=== PATIENT | male | born 1935 | race Caucasian/White ===

== ENCOUNTER 2019-03-28 01:03 | Observation (INO) | payer MEDICARE ==
[~2019-03-28] VITALS: Ht 170.2 cm; Wt 97.0 kg
[2019-03-28] MEDS ORDERED: Flomax0.4 MG PO (01:36)
[2019-03-28] MEDS ORDERED: METF500 PO (01:36)
[2019-03-28] MEDS ORDERED: FINA5 PO (01:37)
[2019-03-28] MEDS ORDERED: Aspirin EC81 MG PO (01:37)
[2019-03-28] MEDS ORDERED: MAGCHL64ER PO (01:37)
[2019-03-28] MEDS ORDERED: Zocor20 MG PO (01:37)
[2019-03-28 03:07] LABS: BASOPHILS ABSOLUTE AUTO 0.04 K/mm3 (0.00-0.23); BASOPHILS PERCENT AUTO 0 % (0-2); EOSINOPHILS ABSOLUTE AUTO 0.16 K/mm3 (0.00-0.68); EOSINOPHILS PERCENT AUTO 1 % (0-6); Hematocrit 45.5 % (37.0-53.0); Hemoglobin 15.4 g/dL (13.5-17.5); IMMATURE GRAN ABSOLUTE AUTO 0.05 K/mm3 (0.00-0.10); IMMATURE GRAN PERCENT AUTO 0 % (0-1); LYMPHOCYTES ABSOLUTE AUTO 1.13 K/mm3 (0.84-5.20); LYMPHOCYTES PERCENT AUTO 9 % (21-46); MONOCYTES PERCENT AUTO 7 % (4-13); Mean Corpuscular HGB 30.4 pg (26.0-34.0); Mean Corpuscular HGB Conc 33.8 g/dL (31.5-36.5); Mean Corpuscular Volume 90 fL (80-100); Mean Platelet Volume 8.7 fL (9.1-12.4); NEUTROPHILS ABSOLUTE AUTO 10.11 K/mm3 (1.96-9.15); NEUTROPHILS PERCENT AUTO 82 % (41-73); Platelet Count 155 K/mm3 (150-400); RDW Coefficient Variation 13.9 % (11.7-14.2); RDW Standard Deviation 45.2 fL (35.1-46.3); Red Blood Cell Count 5.07 M/mm3 (4.30-5.90); White Blood Cell Count 12.39 K/mm3 (4.00-11.30)
[2019-03-28 03:24] LABS: Source, Urine Catheter
[2019-03-28 03:25] LABS: Alanine Aminotransfer (ALT/SGP 28 U/L (12-78); Albumin, Blood 3.7 g/dL (3.4-5.0); Albumin/Globulin Ratio 1.1 (0.8-1.8); Alk Phos 76 U/L (50-136); Anion Gap 8 mmol/L (6-16); Aspartate Aminotrans (AST/SGOT 28 U/L (12-37); Bilirubin, Total 0.6 mg/dL (0.1-1.0); Blood Urea Nitrogen 31 mg/dL (8-24); Bun/Creatinine Ratio 27.2 (12.0-20.0); CO2, Blood 25 mmol/L (21-32); Calcium, Blood 8.9 mg/dL (8.5-10.1); Chloride, Blood 107 mmol/L (98-108); Creatinine, Blood 1.14 mg/dL (0.60-1.20); Globulin, Blood 3.4 g/dL (2.2-4.0); Glomerular Filtration Rate >60 (60-); Glucose, Blood 129 mg/dL (70-99); Potassium, Blood 4.6 mmol/L (3.5-5.5); Sodium, Blood 140 mmol/L (136-145); Total Protein, Blood 7.1 g/dL (6.4-8.2)
[2019-03-28 03:32] LABS: Appearance, Urine Clear (Clear); Bilirubin, Urine 1+ (Neg); Blood, Urine Neg (Neg); Color, Urine Amber (P-Yellow); Glucose Qualitative, Urine Neg (Neg); Ketones, Urine Neg (Neg); Leukocyte Esterase, Urine 1+ (Neg); Nitrite, Urine Neg (Neg); Protein, Urine 1+ (Neg); Urobilinogen, Urine 1+ (Normal)
[2019-03-28 03:37] LABS: Squamous Epithelial Cells Rare /hpf (Few)
[2019-03-28 03:38] LABS: Bacteria Many /hpf; Mucus Mod (0-Heavy)
--- NOTE | 2019-03-28 06:36 | NUR ---
0625 PT ADMITTED TO ROOM 344 PER CART FROM ER, ALL PERSONAL BELONGINGS SENT HOME WITH SON IN LAW LONG. DEAN DRAINING CLEAR YELLOW FLUID, ORIENTED TO ROOM. ALERT AND ORIENTED X 4.
[2019-03-28 13:01] LABS: Hematocrit 46.2 % (37.0-53.0); Hemoglobin 15.2 g/dL (13.5-17.5); Mean Corpuscular HGB 30.2 pg (26.0-34.0); Mean Corpuscular HGB Conc 32.9 g/dL (31.5-36.5); Mean Corpuscular Volume 92 fL (80-100); Mean Platelet Volume 8.9 fL (9.1-12.4); Platelet Count 162 K/mm3 (150-400); RDW Coefficient Variation 13.7 % (11.7-14.2); RDW Standard Deviation 46.4 fL (35.1-46.3); Red Blood Cell Count 5.03 M/mm3 (4.30-5.90); White Blood Cell Count 8.52 K/mm3 (4.00-11.30)
[2019-03-28 13:03] LABS: Alanine Aminotransfer (ALT/SGP 28 U/L (12-78); Albumin, Blood 3.6 g/dL (3.4-5.0); Albumin/Globulin Ratio 1.1 (0.8-1.8); Alk Phos 78 U/L (50-136); Anion Gap 6 mmol/L (6-16); Aspartate Aminotrans (AST/SGOT 20 U/L (12-37); Bilirubin, Total 0.6 mg/dL (0.1-1.0); Blood Urea Nitrogen 28 mg/dL (8-24); Bun/Creatinine Ratio 26.7 (12.0-20.0); CO2, Blood 26 mmol/L (21-32); Calcium, Blood 8.6 mg/dL (8.5-10.1); Chloride, Blood 109 mmol/L (98-108); Creatinine, Blood 1.05 mg/dL (0.60-1.20); Globulin, Blood 3.3 g/dL (2.2-4.0); Glomerular Filtration Rate >60 (60-); Glucose, Blood 119 mg/dL (70-99); Potassium, Blood 4.4 mmol/L (3.5-5.5); Sodium, Blood 141 mmol/L (136-145); Total Protein, Blood 6.9 g/dL (6.4-8.2)
--- NOTE | 2019-03-28 18:54 | NUR ---
SHIFT SUMMARY- PT HAS HAD NO ACUTE CHANGES T/O THE SHIFT. PT WAS SEEN BY DR HYLTON BUT HAS HAD 2 MED BM'S TODAY WITH LARGE AMOUNTS OF FLATUS. PT ALERT AND ORIENTED NOT FORGETFUL INITIALLY THOUGHT. PT HAS A DEAN THAT IS PATENT AND DRAINING TO GRAVITY BLOOD TINGED PINK URINE. THE FAMILY WAS CONCERNED ABOUT THIS. WILL DISCUSS WITH IN THE MORNING. PT IN BED WITH THE CALL LIGHT IN REACH NO CURRENT C/O PAIN, BEDSIDE REPORT COMPLETED WITH NIGHT JANI SANTIAGO.
--- NOTE | 2019-03-29 04:51 | NUR ---
SHIFT SUMMARY PT HAD NO ISSUES NOTED THIS SHIFT. PT IS PRODUCING PINKISH URINE. PT STATES IT HAS IMPROVED. PT SLEPT WELL T/O SHIFT. PT WOKE UP EARLY AND WALKED THE FLOOR WITH WALKER THIS AM. PT CURRENTLY AWAKE WATCHING TV. PT IN NO DISTRESS AND CALL LIGHT IN REACH.
[2019-03-29 05:09] LABS: BASOPHILS ABSOLUTE AUTO 0.03 K/mm3 (0.00-0.23); BASOPHILS PERCENT AUTO 0 % (0-2); EOSINOPHILS ABSOLUTE AUTO 0.16 K/mm3 (0.00-0.68); EOSINOPHILS PERCENT AUTO 2 % (0-6); Hematocrit 43.4 % (37.0-53.0); Hemoglobin 14.4 g/dL (13.5-17.5); IMMATURE GRAN ABSOLUTE AUTO 0.03 K/mm3 (0.00-0.10); IMMATURE GRAN PERCENT AUTO 0 % (0-1); LYMPHOCYTES ABSOLUTE AUTO 1.43 K/mm3 (0.84-5.20); LYMPHOCYTES PERCENT AUTO 20 % (21-46); MONOCYTES ABSOLUTE AUTO 0.69 K/mm3 (0.16-1.47); MONOCYTES PERCENT AUTO 9 % (4-13); Mean Corpuscular HGB 29.4 pg (26.0-34.0); Mean Corpuscular HGB Conc 33.2 g/dL (31.5-36.5); Mean Platelet Volume 8.9 fL (9.1-12.4); NEUTROPHILS ABSOLUTE AUTO 5.01 K/mm3 (1.96-9.15); NEUTROPHILS PERCENT AUTO 68 % (41-73); Platelet Count 153 K/mm3 (150-400); RDW Coefficient Variation 13.8 % (11.7-14.2); RDW Standard Deviation 44.4 fL (35.1-46.3); Red Blood Cell Count 4.89 M/mm3 (4.30-5.90); White Blood Cell Count 7.35 K/mm3 (4.00-11.30)
[2019-03-29 05:11] LABS: Mean Corpuscular Volume 89 fL (80-100)
[2019-03-29 05:32] LABS: Albumin, Blood 3.4 g/dL (3.4-5.0); Anion Gap 6 mmol/L (6-16); Blood Urea Nitrogen 18 mg/dL (8-24); CO2, Blood 24 mmol/L (21-32); Calcium, Blood 8.4 mg/dL (8.5-10.1); Chloride, Blood 109 mmol/L (98-108); Glomerular Filtration Rate >60 (60-); Glucose, Blood 92 mg/dL (70-99); Phosphorus, Blood 2.8 mg/dL (2.5-4.9); Potassium, Blood 4.2 mmol/L (3.5-5.5); Sodium, Blood 139 mmol/L (136-145)
--- NOTE | 2019-03-29 07:00 | NUR ---
ASSUMED CARE OF PT- BEDSIDE REPORT RECIEVED FROM NIGHT JANI SANTIAGO. PT ALERT AND ORIENTED AND A LITTLE FORGETFUL. FAMILY CAME IN TO SEE THE PT SHORTLY AFTER SHIFT CHANGE. PT HAD A LARGE LOOSE BM AFTER SHIFT CHANGE, BT PRESENTBUT HYPOCATIVEUPPER QUADS HOLLOW SOUNDING ON PERCUSSION. PT C/O PASSING GAS LAST NIGHT BUT NO STOOL. THEN BM THIS MORNING HAPPENED. PT ALERT AND ORIENTED AND INDEPENDENT IN THE ROOM. PER REPORT FROM NIGHT JANI SANTIAGO PT WALKED IN THE HALLS LAST NIGHT IN AN ATTEMPT TO GET THINGS MOVING WITH NO RESULT. PT CURRENTLY IN BED WITH THE CALL LIGHT IN REACH NO S&S OF DISTRESS.
[2019-03-29] MEDS ORDERED: MIRALAX17 GM PO (14:39)
--- NOTE | 2019-03-29 16:36 | NUR ---
DISCHARGE NOTE- PT WAS GIVEN VERBAL AND WRITTEN DISCHARGE INSTRUCTIONS AND ACKNOWLEDGED UNDERSTANDING OF THEM. IV DC'D PRIOR TO DISCHARGE. PT HAD AN ADDITIONAL BM PRIOR TO DISCHARGE HOME. PT WAS ESCORTED VIA W/C BY THE RN TO THE [facility]. NO FURTHER QUESTIONS AT THE TIME OF DISCHARGE.
== END 2019-03-29 15:55 | disposition home or self-care (01) ==
LOC: ER 01:03 → MEDS 01:04
PROVIDERS: Family Medicine; Physician Assistant; ADMIT Internal Medicine
DX: K56.600 Partial intestinal obstruction, unspecified as to cause (principal); E86.0 Dehydration; D72.829 Elevated white blood cell count, unspecified; E11.9 Type 2 diabetes mellitus without complications; E78.5 Hyperlipidemia, unspecified; N40.0 Benign prostatic hyperplasia without lower urinary tract symptoms; Z98.890 Other specified postprocedural states; Z90.49 Acquired absence of other specified parts of digestive tract; Z79.899 Other long term (current) drug therapy; Z79.82 Long term (current) use of aspirin
CPT/HCPCS: 36415; 51702; 51798; 74176; 80053; 80069; 81001; 82947; 83690; 85025; 85027; 87086; 96372; 99285-25; G0378; J1650; J7030

== ENCOUNTER → 2021-04-08 | Outpatient (CLI) | payer MEDICARE ==
[~2021-04-08] MED LIST: Aspirin EC81 MG PO; FINA5 PO; Flomax0.4 MG PO; MAGCHL64ER PO; METF500 PO; MIRALAX17 GM PO; Zocor20 MG PO
== END | disposition home or self-care (01) ==
LOC: LAB SHORT 07:53 → LAB 07:53
DX: B35.1 Tinea unguium (principal); L60.2 Onychogryphosis
CPT/HCPCS: 88304; 88312

== ENCOUNTER → 2023-02-24 | Outpatient (CLI) | payer MEDICARE ==
[2023-02-24 13:04] LABS: BASOPHILS ABSOLUTE AUTO 0.05 K/mm3 (0.00-0.23); BASOPHILS PERCENT AUTO 1 % (0-2); EOSINOPHILS ABSOLUTE AUTO 0.15 K/mm3 (0.00-0.68); EOSINOPHILS PERCENT AUTO 2 % (0-6); Hematocrit 41.9 % (37.0-53.0); Hemoglobin 14.2 g/dL (13.5-17.5); IMMATURE GRAN ABSOLUTE AUTO 0.05 K/mm3 (0.00-0.10); IMMATURE GRAN PERCENT AUTO 1 % (0-1); LYMPHOCYTES ABSOLUTE AUTO 1.37 K/mm3 (0.84-5.20); LYMPHOCYTES PERCENT AUTO 22 % (21-46); MONOCYTES ABSOLUTE AUTO 0.68 K/mm3 (0.16-1.47); MONOCYTES PERCENT AUTO 11 % (4-13); Mean Corpuscular HGB 29.8 pg (26.0-34.0); Mean Corpuscular HGB Conc 33.9 g/dL (31.5-36.5); Mean Corpuscular Volume 88 fL (80-100); Mean Platelet Volume 9.2 fL (9.1-12.4); NEUTROPHILS ABSOLUTE AUTO 3.94 K/mm3 (1.96-9.15); NEUTROPHILS PERCENT AUTO 63 % (41-73); Platelet Count 169 K/mm3 (150-400); RDW Coefficient Variation 13.6 % (11.7-14.2); RDW Standard Deviation 43.6 fL (35.1-46.3); Red Blood Cell Count 4.77 M/mm3 (4.30-5.90); White Blood Cell Count 6.24 K/mm3 (4.00-11.30)
[2023-02-24 13:21] LABS: Albumin, Blood 3.5 g/dL (3.4-5.0); Bilirubin, Total 0.4 mg/dL (0.1-1.0); Bun/Creatinine Ratio 26.6 (12.0-20.0); Calcium, Blood 9.2 mg/dL (8.5-10.1); Creatinine, Blood 1.09 mg/dL (0.60-1.20); Globulin, Blood 3.4 g/dL (2.2-4.0); Potassium, Blood 4.4 mmol/L (3.5-5.5); Total Protein, Blood 6.9 g/dL (6.4-8.2)
== END ==
LOC: LAB SHORT 10:55 → LAB 10:55
PROVIDERS: Nurse Practitioner Family
DX: I10 Essential (primary) hypertension (principal); E11.9 Type 2 diabetes mellitus without complications
CPT/HCPCS: 80053; 83036; 85025

== ENCOUNTER → 2024-02-21 | Outpatient (CLI) | payer MEDICARE, OTHER ==
[~2024-02-21] MED LIST changes: +DOXE10 PO; +DULO30 PO; +Prinivil10 MG PO
[2024-02-23 01:24] LABS: COTININE, URN, SCREEN Negative ng/mL (Cutoff 100)
== END | disposition home or self-care (01) ==
LOC: LAB SHORT 14:24 → LAB 14:24
PROVIDERS: Orthopaedic Surgery
DX: Z01.812 Encounter for preprocedural laboratory examination (principal); Z87.891 Personal history of nicotine dependence

== ENCOUNTER 2024-03-07 05:47 | Day surgery (SDC) | payer MEDICARE, OTHER ==
[~2024-03-07] VITALS: Ht 167.6 cm; Wt 96.8 kg
[2024-03-07] VITALS (11 sets, daily range): BP systolic 113–136; BP diastolic 65–86
[2024-03-07] MEDS ORDERED: Acetaminophen 500 MG Tab PO SCH ×2 (06:30→08:00)
[2024-03-07] MEDS ORDERED: Ropivacaine 0.5% HCl/Pf 123.125 MG,EPINEPHrine HCL 0.25 MG,Ketorolac Tromethamine 15 MG... INFIL SCH (06:30)
[2024-03-07] MEDS ORDERED: Lactated Ringer's 1,000 ML IV SCH ×2 (06:30→07:55)
[2024-03-07] MEDS ORDERED: Chlorhexidine Mouth Care 15 ML UDC MT SCH (06:30)
[2024-03-07] MEDS ORDERED: OxyCODONE HCL 10 MG TABCR PO SCH (06:30)
[2024-03-07] MEDS ORDERED: Tranexamic Acid 100 ML IV SCH (06:30)
[2024-03-07] MEDS ORDERED: CeFAZolin Sodium 2,000 MG in NS 100 ML IV SCH ×2 (06:30→16:00)
[2024-03-07] MEDS ORDERED: propofoL 60 ML IV ONE (07:47)
[2024-03-07] MEDS ORDERED: Dexamethasone Sod Phos 10 MG/ML 1ML VIAL ONE (07:51)
[2024-03-07] MEDS ORDERED: Metoclopramide HCl 5MG / ML 2ML Vial IV PRN (07:55)
[2024-03-07] MEDS ORDERED: DiphenhydrAMINE HCL 25 MG Cap PO PRN (07:55)
[2024-03-07] MEDS ORDERED: Ondansetron HCl 2 MG / ML 2ML Vial IV PRN ×2 (07:55→08:30)
[2024-03-07] MEDS ORDERED: Bisacodyl 10 MG Supp PR PRN (07:55)
[2024-03-07] MEDS ORDERED: Magnesium Hydroxide Conc 10 ML UDC PO PRN (07:55)
[2024-03-07] MEDS ORDERED: Promethazine HCl 25 MG Tab PO PRN (08:00)
[2024-03-07] MEDS ORDERED: OxyCODONE HCL 5 MG TAB PO PRN ×2 (08:00)
[2024-03-07] MEDS ORDERED: HYDROmorphone HCl/Pf 1MG SYR IV PRN ×2 (08:00→08:30)
[2024-03-07] MEDS ORDERED: MetFORMIN HCl 500 mg PO SCH (08:00)
[2024-03-07] MEDS ORDERED: FentaNYL Citrate 50 MCG/ML 2 ML Injection IV PRN ×3 (08:30→08:35)
[2024-03-07] MEDS ORDERED: ePHEDrine Sulfate 50 MG/ML 1ML Injection ONE (08:42)
[2024-03-07] MEDS ORDERED: Ondansetron HCl 2 MG / ML 2ML Vial ONE (08:49)
[2024-03-07] MEDS ORDERED: Docusate Sodium 100 MG Cap PO SCH (09:00)
[2024-03-07] MEDS ORDERED: Finasteride 5 MG Tab PO SCH ×2 (09:00)
[2024-03-07] MEDS ORDERED: Lisinopril 10 MG Tab PO SCH (09:00)
[2024-03-07] MEDS ORDERED: propofoL 20 ML IV ONE (09:13)
[2024-03-07] MEDS ORDERED: Insulin Regular 100 UNIT/ML 10ML Vial SC SCH (11:30)
[2024-03-07] MEDS ORDERED: Ketorolac Tromethamine 15mg Vial IV SCH (12:00)
--- NOTE | 2024-03-07 15:48 | NUR ---
DISCHARGE SUMMARY PT A&OX4, VSS/RA, ANNIE PO, VOIDING, PASSED PHYSICAL THERAPY EVAL, AMB FWW/GB AND UP TO CHAIR, PAIN MANAGED, IV DC'D. DC INS PROVIDED TO PT AND DAUGHTER; REP UNDERSTANDING THOSE INSTRUCTIONS. LEFT FLOOR VIA WC WITH STOPPING BUILDER TO GO HOME WITH ALL PERSONAL POSSESSIONS INCLUDING DC PACKET; I MAILED AQUACEL DRESSINGS TO PT SINCE I FORGOT TO PROVIDE THEM AT DC. PT AND FAMILY WERE INSISTENT TO LEAVE AND PUSHED THROUGH EVERYTHING, VERY IMPATIENT AND BARELY STOPPED TALKING FOR A MINUTE TO LISTEN TO DIRECTION OR EDUCATION.
[2024-03-07] MEDS ORDERED: Tamsulosin HCl 0.4 MG Cap PO SCH (21:00)
[2024-03-08] MEDS ORDERED: Aspirin 81 MG Chew PO SCH (09:00)
[2024-03-08] MEDS ORDERED: Atorvastatin 10 MG Tab PO SCH (09:00)
== END 2024-03-07 15:04 | disposition home or self-care (01) ==
LOC: ORSCMMR 05:47 → ORD 08:00 → ORSCMMR 08:00 → ORD 10:30 → SURS 10:55 → ORSCMMR 15:04
PROVIDERS: Orthopaedic Surgery
PROC: 0SRD0JA Replacement of Left Knee Joint with Synthetic Substitute, Uncemented, Open Approach (ICD-10-PCS; principal; 2024-03-07 08:00)
DX: M17.12 Unilateral primary osteoarthritis, left knee (principal); I12.9 Hypertensive chronic kidney disease with stage 1 through stage 4 chronic kidney disease, or unspecified chronic kidney disease; N18.9 Chronic kidney disease, unspecified; R73.03 Prediabetes; Z79.84 Long term (current) use of oral hypoglycemic drugs; Z79.899 Other long term (current) drug therapy; Z68.34 Body mass index [BMI] 34.0-34.9, adult
CPT/HCPCS: 73560-LT; 82947; 97110; 97116; 97162; A9270; C1776; J0171; J0690; J0735; J1100; J1170; J1885; J2405; J2704; J2795; J7120

== ENCOUNTER → 2024-04-02 | Outpatient (CLI) | payer MEDICARE, OTHER ==
[2024-04-02 17:32] LABS: Adenovirus F 40/41 Not Detected (NOT DETECT); Astrovirus Not Detected (NOT DETECT); Campylobacter Sp Not Detected (NOT DETECT); Cryptosporidium Not Detected (NOT DETECT); Cyclospora Cayetanensis Not Detected (NOT DETECT); E. Coli O157 Not Detected (NOT DETECT); Entamoeba Histolytica Not Detected (NOT DETECT); Enteroaggregative E. coli-EAEC Not Detected (NOT DETECT); Enteropathogenic E. coli-EPEC Not Detected (NOT DETECT); Enterotoxigenic E. coli-ETEC Not Detected (NOT DETECT); Giardia Lamblia Not Detected (NOT DETECT); Norovirus GI/GII Not Detected (NOT DETECT); Plesiomonas Shigelloides Not Detected (NOT DETECT); Rotavirus A Not Detected (NOT DETECT); Salmonella Sp Not Detected (NOT DETECT); Sapovirus Not Detected (NOT DETECT); Shiga Toxin-prod E. coli-STEC Not Detected (NOT DETECT); Shigella/Enteroin E. coli-EIEC Not Detected (NOT DETECT); Vibrio Cholerae Not Detected (NOT DETECT); Vibrio Sp Not Detected (NOT DETECT); Yersinia Enterocolitica Not Detected (NOT DETECT)
== END ==
LOC: LAB SHORT 14:42 → LAB 14:42
PROVIDERS: Nurse Practitioner Family
DX: R19.7 Diarrhea, unspecified (principal)
CPT/HCPCS: 87507

== ENCOUNTER 2025-02-15 16:43 | Emergency (ER) | payer MEDICARE, OTHER ==
[~2025-02-15] VITALS: Ht 167.6 cm; Wt 117.9 kg
[2025-02-15 17:04] LABS: BASOPHILS ABSOLUTE AUTO 0.07 K/mm3 (0.00-0.23); BASOPHILS PERCENT AUTO 1 % (0-2); EOSINOPHILS ABSOLUTE AUTO 0.22 K/mm3 (0.00-0.68); EOSINOPHILS PERCENT AUTO 2 % (0-6); Hematocrit 45.5 % (37.0-53.0); Hemoglobin 14.9 g/dL (13.5-17.5); IMMATURE GRAN ABSOLUTE AUTO 0.09 K/mm3 (0.00-0.10); IMMATURE GRAN PERCENT AUTO 1 % (0-1); LYMPHOCYTES ABSOLUTE AUTO 3.26 K/mm3 (0.84-5.20); LYMPHOCYTES PERCENT AUTO 34 % (21-46); MONOCYTES ABSOLUTE AUTO 0.86 K/mm3 (0.16-1.47); MONOCYTES PERCENT AUTO 9 % (4-13); Mean Corpuscular HGB 28.5 pg (26.0-34.0); Mean Corpuscular HGB Conc 32.7 g/dL (31.5-36.5); Mean Corpuscular Volume 87 fL (80-100); Mean Platelet Volume 8.6 fL (9.1-12.4); NEUTROPHILS ABSOLUTE AUTO 5.05 K/mm3 (1.96-9.15); NEUTROPHILS PERCENT AUTO 53 % (41-73); Platelet Count 186 K/mm3 (150-400); RDW Coefficient Variation 14.7 % (11.7-14.2); RDW Standard Deviation 46.9 fL (35.1-46.3); Red Blood Cell Count 5.22 M/mm3 (4.30-5.90); White Blood Cell Count 9.55 K/mm3 (4.00-11.30)
[2025-02-15] MEDS ORDERED: TRAM50 PO (17:25)
[2025-02-15 17:32] LABS: International Normalized Ratio 1.09; Prothrombin Time Results 11.9 Sec (9.7-11.5)
[2025-02-15 17:39] LABS: Albumin, Blood 3.7 g/dL (3.4-5.0); Bilirubin, Total 0.6 mg/dL (0.1-1.0); Bun/Creatinine Ratio 27.7 (12.0-20.0); Calcium, Blood 9.2 mg/dL (8.5-10.1); Creatinine, Blood 1.12 mg/dL (0.60-1.20); Globulin, Blood 3.7 g/dL (2.2-4.0); Potassium, Blood 3.9 mmol/L (3.5-5.5); Total Protein, Blood 7.4 g/dL (6.4-8.2)
[2025-02-15] MEDS ORDERED: Tenecteplase 50 MG / Kit IV ONE ×2 (18:00→19:56)
[2025-02-15 18:56] LABS: Source, Urine Foley catheter
[2025-02-15 19:00] VITALS: BP 160/98
[2025-02-15 19:04] LABS: Appearance, Urine Clear (Clear); Bilirubin, Urine Neg (Neg); Blood, Urine Neg (Neg); Glucose Qualitative, Urine Neg (Neg); Ketones, Urine Neg (Neg); Leukocyte Esterase, Urine Neg (Neg); Nitrite, Urine Neg (Neg); Protein, Urine 2+ (Neg); Urobilinogen, Urine NORM (Normal)
[2025-02-15 19:17] LABS: Color, Urine Pale Yellow (P-Yellow)
[2025-02-15 19:19] LABS: Bacteria Rare /hpf; Red Blood Cells, Urine 0-2 /hpf (0-2); Renal Epithelial Rare /hpf (0-Rare); Squamous Epithelial Cells Rare /hpf (Few); White Blood Cells, Urine 0-2 /hpf (0-5)
== END 2025-02-15 19:34 | disposition short-term general hospital (02) ==
LOC: ER 16:43
PROVIDERS: Student in an Organized Health Care Education/Training Program
DX: I63.312 Cerebral infarction due to thrombosis of left middle cerebral artery (principal); I63.512 Cerebral infarction due to unspecified occlusion or stenosis of left middle cerebral artery; I65.21 Occlusion and stenosis of right carotid artery; R29.810 Facial weakness; R29.711 NIHSS score 11; Z59.89 Other problems related to housing and economic circumstances
CPT/HCPCS: 51702; 70450; 70496; 70498; 80053; 81001; 82947; 84484; 85025; 85610; 85730; 93005; 93010; 96374-59; 99285-25; J3101; Q9967